=== PATIENT | female | born 1980 | race Caucasian/White ===

== ENCOUNTER 2018-03-15 19:48 | Emergency (ER) | payer OTHER ==
[2018-03-15 19:58] VITALS: BP 129/81; PULSE 103; TEMP 98.2; BMI 33.0
--- NOTE | 2018-03-15 19:58 | PDOC ---
Rapid Medical Evaluation Medical Evaluation: Allergies Allergy/AdvReac Type Severity Reaction Status Date / Time No Known Allergies Allergy Verified 05/06/15 13:15 I have performed a brief in-person evaluation of this patient. The patient presents with a chief complaint of: Hx of RA; fever, bodyaches, cough, rhinorrhea since yesterday, taking Motrin (last took 800 mg 3 hours ago) ; feels she may have flu; did not get flu shot this year Pertinent physical exam findings: In NAD, lungs clear I have ordered the following: Flu swab The patient will proceed to the ED for further evaluation. 03/15/18 19:54 Discharge Disposition - Referrals Referrals: Emiliano Phillips MD [Primary Care Provider] - - Patient Instructions - Post Discharge Activity
--- NOTE | 2018-03-15 20:44 | PDOC ---
History of Present Illness - General Chief Complaint: Cold Symptoms Stated Complaint: Cold Symptoms/FEVER Time Seen by Provider: 03/15/18 20:42 - History of Present Illness Initial Comments: 03/15/18 20:44 37-year-old female on immunosuppressive therapy for rheumatoid arthritis presents for evaluation of cough and nasal congestion and fever times one day. Past History - Past Medical History Allergies/Adverse Reactions: Allergies Allergy/AdvReac Type Severity Reaction Status Date / Time No Known Allergies Allergy Verified 03/15/18 19:57 Home Medications: Ambulatory Orders NK [No Known Home Medication] 03/15/18 Disorders: Yes (ELEVATED LIVER ENZYMES) - Reproductive History (#): 6 Para: 4 - Suicide/Smoking/Psychosocial Hx Smoking History: Never smoked Have you smoked in the past 12 months: No Number of Cigarettes Smoked Daily: 6 'Breaking Loose' booklet given: 05/06/15 Hx Alcohol Use: No Drug/Substance Use Hx: No Substance Use Type: None Review of Systems - Review of Systems Constitutional: Yes: Chills, Fever, Malaise, Night Sweats HEENTM: Yes: Nose Congestion Respiratory: Yes: Cough *Physical Exam - Vital Signs Last Vital Signs Temp Pulse Resp BP Pulse Ox 98.2 F 103 H 20 129/81 99 03/15/18 19:54 03/15/18 19:54 03/15/18 19:54 03/15/18 19:54 03/15/18 19:54 - Physical Exam Comments: 03/15/18 20:44 HEAD: NC/AT EYES: Conjuntiva clear Ears: Canals and TM's normal NOSE: No d/c THROAT: Moist mucous membrances, oral pharanx clear, uvula midline NECK: Supple without adenopathy CARDIAC: S1 S2 LUNGS: CTA Full and Equal breath sounds ABDOMEN: Soft NT ND MS: Full ROM in all joints without edema NEUROLOGIC: No gross sensory or motor deficits, NVID SKIN: Normal color and temperature no lesions or rashes Moderate Sedation - Procedure Monitoring Vital Signs: Procedure Monitoring Vital Signs Temperature 98.2 F 03/15/18 19:54 Pulse Rate 103 H 03/15/18 19:54 Respiratory Rate 20 03/15/18 19:54 Blood Pressure 129/81 03/15/18 19:54 O2 Sat by Pulse Oximetry (%) 99 03/15/18 19:54 *DC/Admit/Observation/Transfer Diagnosis at time of Disposition: Upper respiratory infection - Discharge Dispostion Disposition: HOME Condition at time of disposition: Stable Decision to Admit order: No - Referrals Referrals: Emiliano Phillips MD [Primary Care Provider] - - Patient Instructions Printed Discharge Instructions: DI for Viral Upper Respiratory Infection -- Adult Additional Instructions: He may take Tylenol and Motrin for fever and Mucinex DM for cough. Will also help sleep. Return to the emergency room should symptoms worsen or go unresolved and follow up with her primary care physician in one to 2 days for further evaluation and treatment options. - Post Discharge Activity
== END 2018-03-15 21:04 | disposition home or self-care (01) ==
LOC: JERFT 19:48 → JER 19:48 → JERFT 21:04
DX: J06.9 Acute upper respiratory infection, unspecified (principal); B97.89 Other viral agents as the cause of diseases classified elsewhere; M06.9 Rheumatoid arthritis, unspecified
CPT/HCPCS: 87804; 99281-25

== ENCOUNTER 2021-04-13 14:18 | Emergency (ER) | payer OTHER ==
[2021-04-13 14:40] VITALS: BP 165/90; PULSE 100; TEMP 97.8; BMI 34.7
[2021-04-13] MEDS ORDERED: HIV POST EXPOSURE PROPHYLAXIS KIT PO ONE (15:46)
[2021-04-13] MEDS ORDERED: HIV POST EXPOSURE PROPHYLAXIS KIT NR ONE (15:46)
[2021-04-13 17:12] LABS: BASO % 0.4 % (0-2.0); EOS % 0.8 % (0-4.5); HEMATOCRIT 41.4 % (32.4-45.2); HEMOGLOBIN 13.8 GM/dL (10.7-15.3); LYMPH % 31.8 % (8-40); MCH 28.8 pg (25.7-33.7); MCHC 33.3 g/dl (32.0-36.0); MEAN CELL VOLUME 86.5 fl (80-96); MEAN PLT VOLUME 8.4 fl (7.5-11.1); MONO % 5.4 % (3.8-10.2); NEUT % 61.6 % (42.8-82.8); PLATELET COUNT 330 10^3/uL (134-434); RBC 4.78 M/mm3 (3.60-5.2); RDW 13.7 % (11.6-15.6); WHITE BLOOD COUNT 10.1 K/mm3 (4.0-10.0)
[2021-04-13 17:40] LABS: CALCIUM 9.4 mg/dL (8.5-10.1)
[2021-04-13 17:41] LABS: BLOOD UREA NITROGEN 7.7 mg/dL (7-18)
[2021-04-13 17:44] LABS: CREATININE 0.5 mg/dL (0.55-1.3)
[2021-04-13 17:46] LABS: BILIRUBIN,TOTAL 0.2 mg/dL (0.2-1); TOT PROT 8.2 g/dl (6.4-8.2)
[2021-04-13 18:45] LABS: HIV INTERPRETATION NEGATIVE (NEGATIVE)
== END 2021-04-13 17:08 | disposition home or self-care (01) ==
LOC: JERFT 14:18
DX: S61.234A Puncture wound without foreign body of right ring finger without damage to nail, initial encounter (principal); W46.1XXA Contact with contaminated hypodermic needle, initial encounter
CPT/HCPCS: 36415; 80053; 85025; 86704; 86803; 87340; 87389; 87517; 99283-25